=== PATIENT | female | born 1980 | race Caucasian/White ===

== ENCOUNTER → 2020-06-17 | Outpatient (CLI) | payer BC, OTHER ==
--- NOTE | 2020-06-17 13:20 | KCIC ---
EXAM: Thyroid sonogram. HISTORY: Thyroid enlargement. TECHNIQUE: Sonographic imaging of the thyroid was performed. COMPARISON: None. FINDINGS: The right thyroid lobe measures 4.4 x 1.9 x 1.7 cm. The left thyroid lobe measures 4.6 x 2. 0 x 1.6 cm. The thyroid isthmus measures 4 mm. The thyroid parenchyma is diffusely heterogeneous. No discrete nodule is seen. IMPRESSION: 1. Diffusely heterogeneous thyroid parenchyma. This can be seen as a sequela of thyroiditis. 2. Normal thyroid size. 3. No discrete thyroid nodule. Electronically signed by: Chelsie Sidhu MD (06/17/2020 1:18 PM) [id number]
--- NOTE | 2020-06-17 14:46 | KCIC ---
Bilateral digital screening mammograms with 3-D tomosynthesis: Reason for examination: Routine baseline screening. Bilateral mammograms in CC and oblique projections were obtained with 2-D imaging and 3-D tomosynthes is imaging on a Siemens Inspiration unit and reviewed on the workstation. Interpretation was made wit h the benefit of CAD. The skin and nipples show no abnormalities. No abnormal axillary lymph nodes are seen. The breast par enchyma shows scattered fatty and fibroglandular density. (Breast density: Category B.) There is a 6 mm circumscribed nodule present centrally in the left breast at the 3:00 position 5.8 cm from the nip ple. There is also an additional 4 mm nodule in the central 5:00 position of the left breast approxim ately 4.8 cm from the nipple. Further evaluation with ultrasound is recommended. There are no other d ominant masses, suspicious calcifications or architectural distortion. Impression: 6 mm nodule in the central 3:00 B position of the left breast. 4 mm nodule at the central 5:00 B posi tion of the left breast. Recommend further evaluation with ultrasound. BI-RADS Category 0: Incomplete. Needs additional imaging evaluation. "Our facility is accredited by the [employer] Mammography Program." This patient's information has been entered into a reminder system for the patient to be notified wit h the results of her examination and a target date for the next mammogram. Electronically signed by: Linda Lora MD (06/17/2020 2:43 PM) [email or web address]
== END ==
LOC: KCIC US 12:29
PROVIDERS: ATTEND Nurse Practitioner Family
DX: Z12.31 Encounter for screening mammogram for malignant neoplasm of breast (principal); N63.23 Unspecified lump in the left breast, lower outer quadrant; E04.1 Nontoxic single thyroid nodule
CPT/HCPCS: 76536; 77063; 77067

== ENCOUNTER → 2020-06-24 | Outpatient (CLI) | payer BC ==
--- NOTE | 2020-06-24 14:38 | KCIC ---
US BREAST LT Clinical Indication: Reason: CALLBACK ABNORMAL baseline screening MAMM / Spl. Instructions: / Histor y: Comparison: Bilateral mammogram 06/17/2020. TECHNIQUE: Real-time ultrasound imaging of the left breast is performed. Findings: In the left breast at the 3:00 position 4 cm from the nipple there is a small cyst versus cystic duct al ectasia measuring 9 mm in length. There is an adjacent well-circumscribed oval, parallel cyst gerardo uring 7 mm with internal echoes. At the 5:00 B position no focal abnormality is identified. There are no abnormal axillary lymph nodes. IMPRESSION: 1. At the 3:00 position 4 cm from the nipple there is a small probable complicated cyst and a small cyst versus cystic ductal ectasia. These likely account for the mammogram appearance. 2. No sonographic abnormality is identified at the 5:00 B position. 3. Recommend diagnostic left mammogram and breast ultrasound follow-up in 6 months. 4. BI-RADS Category 3, probably benign. Electronically signed by: Lopez Arboleda MD (06/24/2020 2:36 PM) [email or web address]
== END ==
LOC: KCIC US 13:07
PROVIDERS: ATTEND Nurse Practitioner Family
DX: N60.02 Solitary cyst of left breast (principal); N60.42 Mammary duct ectasia of left breast
CPT/HCPCS: 76641